=== PATIENT | female | born 1970 | race Caucasian/White ===

== ENCOUNTER → 2024-03-11 07:51 | Outpatient (REF) | payer OTHER, SELFPAY | LOC: HWRAD 07:51 | PROVIDERS: ATTENDING PHYSICIAN Nurse Practitioner Adult Health | DX: Z87.891 Personal history of nicotine dependence (principal) | CPT/HCPCS: 71271 ==

== ENCOUNTER → 2024-04-10 06:54 | Outpatient (REF) | payer OTHER, SELFPAY | LOC: HWRCS 06:54 | PROVIDERS: ATTENDING PHYSICIAN Nurse Practitioner Adult Health | DX: I31.39 Other pericardial effusion (noninflammatory) (principal) | CPT/HCPCS: 93306 ==